=== PATIENT | female | born 1935 | race Caucasian/White ===

== ENCOUNTER → 2016-07-14 | Outpatient (CLI) | payer OTHER ==
[~2016-07-14] MED LIST: ADVAIR 1001 DISK W/D PO; ALLERGY SHOTS INJ; AMLODIPINE BESYL5 MG PO; AVANDIA PO; FLOVENT DISKU100 MCG INH; LIPITOR PO; LOPRESSOR PO; LORTAB 7.5-5001 TAB; LUMIGAN EYE DROPS; MELOXICAM15 MG PO; METFORMIN PO; NEXIUM PO; PROAIR HFA8.5 GM INH; TEKTURNA300 MG PO; VASOTEC PO; ZOCOR PO; [UNRECOGNIZED DRUG - OTHER]
--- NOTE | ~2016-07-14 | MY11 ---
[facility] A Service of [facility] RADIOLOGY TEXT RESULTS PATIENT: JAN VAZQUEZ LOCATION: [facility] : 31 UNIT #: [id number] AGE: [address]: Sebastien Lai MD SEX: F ORDER DR: [id number] [facility] [address] [place], [place] [address] [id number] O MR#: [id number] Acc #: [id number] NAME: JAN VAZQUEZ : 1935 SEX: F STUDY DATE/TIME: 07/14/2016 12:24 UNIT: [facility] ROOM: STUDY DESCRIPTION: MY Mammogram Screening Dig John Attending Physician: Sebastien Lai M.D. Ordering Physician: Sebastien Lai M.D. Primary Care Physician: Sebastien Lai M.D. MEDICAL IMAGING REPORT This report is preliminary unless electronic signature is present EXAM Bilateral digital screening mammogram with CAD, 07/14/2016 INDICATION 80-year-old female for routine screening. No reported problems and no personal history of breast cancer. Family history positive in a sister at age 38. History of breast surgery in 2009 for "lumps". TECHNIQUE CC, MLO and exaggerated CC lateral views of the breasts were obtained and reviewed with an FDA-approved CAD device. COMPARISON 04/16/2015, 03/29/2014, 02/15/2013, 12/09/2011 and 11/22/2010 FINDINGS Breast parenchyma is heterogeneously dense. This degrades sensitivity of screening mammography. The pattern is unchanged. Scar markers present on the left. There is no new dominant nodule or mass in either breast. No new suspicious cluster of microcalcifications. Benign calcifications are present. IMPRESSION Benign screening mammogram. One year followup recommended. Patients over the age of 40 are entered into a reminder system with target due date for the next mammogram. A result letter will also be sent to the patient. BIRADS: 2 Benign Finding Dictated by... Edy Galindo M.D. [facility] A Service of [facility] RADIOLOGY TEXT RESULTS PATIENT: JAN VAZQUEZ LOCATION: [facility] : 31 UNIT #: [id number] AGE: [address]: Sebastien Lai MD SEX: F ORDER DR: THIS IS AN ELECTRONICALLY VERIFIED REPORT Edy Galindo M.D. at 07/14/2016 5:04 PM Mc TD: 07/14/2016 16:15 JOB #: [id number] MEDICAL IMAGING REPORT COPY
== END | disposition home or self-care (01) ==
LOC: CWCC 12:01
DX: Z12.31 Encounter for screening mammogram for malignant neoplasm of breast (principal); Z80.3 Family history of malignant neoplasm of breast; Z98.890 Other specified postprocedural states
CPT/HCPCS: G0202